=== PATIENT | male | born 2000 | race Caucasian/White ===

== ENCOUNTER 2018-03-09 14:48 | Emergency (ER) | payer MEDICAID ==
[~2018-03-09] VITALS: Ht 172.7 cm; Wt 86.2 kg
[2018-03-09 15:06] VITALS: BP 128/56
--- NOTE | 2018-03-09 17:25 | NUR ---
17 YO M TO ER WITH C/O LBP X3DAYS. PT STATES WORSE PAIN UPON WAKING AND WITH WAKLING. 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 DENIES N/V/D; SKIN IS PINK/WARM/DRY; AAOX4 WITH EVEN AND STEADY GAIT; LUNGS CLEAR BL; HR EVEN AND REGULAR; PT DENIES ANY FEVER, CP, SOB, OR COUGH AT THIS TIME; PATIENT STATES PAIN OF 5/10 AT THIS TIME; VSS; PATIENT POSITIONED FOR COMFORT; HOB ELEVATED; BEDRAILS UP X2; BED DOWN. ER MD MADE AWARE OF PT STATUS.
[2018-03-09] MEDS: KETOROLAC 60 MG/2 ML VIAL IM ONE (17:42)
--- NOTE | 2018-03-09 17:45 | NUR ---
PT SITTING IN BEDSIDE CHAIR IN NO APPEAREN DISTRESS WILL CONTINUE TO MONITOR
[2018-03-09 18:07] VITALS: BP 125/50
--- NOTE | 2018-03-09 18:07 | NUR ---
Patient discharged with v/s stable. Written and verbal after care instructions given and explained. Patient alert, oriented and verbalized understanding of instructions. Ambulatory with steady gait. All questions addressed prior to discharge. ID band removed. Patient advised to follow up with PMD. Rx of IBUPROPHEN 600MG given. Patient educated on indication of medication including possible reaction and side effects. Opportunity to ask questions provided and answered.
== END 2018-03-09 18:07 | disposition home or self-care (01) ==
LOC: MED 14:48
DX: M54.5 Low back pain (principal)
CPT/HCPCS: 96372; 99283; J1885

== ENCOUNTER 2018-03-29 20:06 | Emergency (ER) | payer MEDICAID ==
[~2018-03-29] VITALS: Ht 172.7 cm; Wt 90.7 kg
[2018-03-29 20:16] VITALS: BP 132/64
[2018-03-29] MEDS ORDERED: IBUPROFEN 600 MG TAB PO ONE (21:05)
[2018-03-29 22:21] VITALS: BP 109/60
[2018-04-01 06:36] LABS: CHLAMYDIA TRACHOMATIS AMP DNA Negative (Negative)
== END 2018-03-29 22:21 | disposition home or self-care (01) ==
LOC: MED 20:06
DX: R10.30 Lower abdominal pain, unspecified (principal); R19.7 Diarrhea, unspecified; R30.0 Dysuria
CPT/HCPCS: 36415; 81002; 87086; 87491; 99283